=== PATIENT | female | born 1975 | race American Indian/Alaskan Native ===

== ENCOUNTER 2017-10-04 12:57 | Emergency (ER) | payer OTHER, BC ==
[2017-10-04] MEDS ORDERED: ZOFRAN ODT PO ONE (14:21)
[2017-10-04] MEDS ORDERED: MOTRIN PO ONE (14:21)
[2017-10-04] MEDS ORDERED: NORCO 5/325 PO ONE (14:21)
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
[2017-10-04 15:21] VITALS: BP 138/74
== END 2017-10-04 14:55 | disposition home or self-care (01) ==
LOC: ED 12:57
DX: S80.12XA Contusion of left lower leg, initial encounter (principal); S80.11XA Contusion of right lower leg, initial encounter; M54.2 Cervicalgia; V49.09XA Driver injured in collision with other motor vehicles in nontraffic accident, initial encounter; W22.11XA Striking against or struck by driver side automobile airbag, initial encounter; Y93.89 Activity, other specified; Y99.8 Other external cause status; Y92.488 Other paved roadways as the place of occurrence of the external cause
CPT/HCPCS: 99283; Q0162